=== PATIENT | male | born 2000 | race Caucasian/White ===

== ENCOUNTER 2022-01-06 14:31 | Outpatient (CLI) | payer OTHER | END 2022-01-06 14:32 | disposition home or self-care (01) | LOC: TBSIIMAG 14:31 | PROVIDERS: ATTEND Orthopaedic Surgery | DX: M51.17 Intervertebral disc disorders with radiculopathy, lumbosacral region (principal); M48.07 Spinal stenosis, lumbosacral region; Q05.7 Lumbar spina bifida without hydrocephalus | CPT/HCPCS: 72148 ==